=== PATIENT | male | born 1970 | race African-American/Black ===

== ENCOUNTER 2019-05-10 04:15 | Emergency (ER) | payer MEDICARE, MEDICAID ==
[~2019-05-10] VITALS: Ht 180.3 cm; Wt 78.5 kg
[2019-05-10] MEDS ORDERED: cloNIDine HCL 0.1 MG TAB PO ONE (05:00)
[2019-05-10 07:43] LABS: Basophils # (auto) 0 uL; Basophils % (auto) 0.4 % (0.0-2.0); Eosinophils # (auto) 0 uL; Eosinophils % (auto) 0.1 % (0.0-7.0); Hemoglobin 13.6 g/dL (13.5-17.5); Lymphocytes # (auto) 1.2 uL; Monocytes # (auto) 0.8 uL; Red Cell Distribution Width 16.1 % (11.8-14.3)
[2019-05-10 07:48] LABS: Hematocrit 43.4 % (41.0-53.0); Lymphocytes % (auto) 12.8 % (10.0-50.0); Mean Corpuscular Hemoglobin 22.5 pg (28.0-32.0); Mean Corpuscular Hgb Conc. 31.3 g/dL (32.0-36.0); Monocytes % (auto) 8.6 % (0.0-12.0); Neutrophils # (auto) 7.4 uL; Neutrophils % (auto) 78.1 % (37.0-80.0); Nucleated Red Blood Cells % 0.1 %; Platelet Count (auto) 220 10^3/uL (140-450); Red Blood Cells 6.03 10^6/uL (4.5-5.90); White Blood Cell 9.4 10^3/uL (4.4-10.8)
[2019-05-10 08:01] LABS: Alanine Aminotransferase 18 U/L (16-61); Albumin 3.5 g/dL (3.4-5.0); Amylase 139 U/L (25-115); Anion Gap 7 (5-15); Aspartate Aminotransferase 19 U/L (15-37); BUN/Creatinine Ratio 10.9; Blood Urea Nitrogen 14 mg/dL (7-18); Calcium 8.4 mg/dL (8.5-10.1); Carbon Dioxide 26 mmol/L (21-32); Chloride 102 mmol/L (98-107); GFR African American 77 mL/min; GFR Non-African American 63 mL/min; Glucose 96 mg/dL (74-106); Lipase 109 U/L (73-393); Potassium 3.4 mmol/L (3.5-5.1); Sodium 135 mmol/L (136-145)
[2019-05-10 08:08] LABS: Alkaline Phosphatase 45 U/L (45-117); Bilirubin, Total 0.4 mg/dL (0.2-1.0); Total Protein 8.6 g/dL (6.4-8.2)
[2019-05-10 08:16] LABS: INR 1.15 (0.9-1.15)
[2019-05-10 11:14] VITALS: BP 122/85
[2019-05-10] MEDS ORDERED: POTASSIUM EFFERVESENT TAB 25 MEQ PO ONE (11:15)
[2019-05-11] MEDS ORDERED: TAM04C PO (21:17)
[2019-05-11] MEDS ORDERED: PANC3600 OR (21:17)
[2019-05-11] MEDS ORDERED: METO10TA3 PO (21:17)
[2019-05-11] MEDS ORDERED: [UNRECOGNIZED DRUG - CODE] PO (21:17)
[2019-05-11] MEDS ORDERED: HYDR50TA15 PO (21:17)
[2019-05-11] MEDS ORDERED: [UNRECOGNIZED DRUG - CODE] XX (21:17)
[2019-05-11] MEDS ORDERED: HYDR2INJ PO (21:17)
[2019-05-11] MEDS ORDERED: DRON5CAP PO (21:17)
[2019-05-11] MEDS ORDERED: FELO5TAB PO (21:17)
[2019-05-11] MEDS ORDERED: [UNRECOGNIZED DRUG - CODE] BU (21:17)
[2019-05-13] MEDS ORDERED: PANT40T PO (11:57)
[2019-05-13] MEDS ORDERED: AML5T PO (11:57)
[2019-05-13] MEDS ORDERED: HCTZ25T GT (11:58)
== END 2019-05-10 12:34 | disposition home or self-care (01) ==
LOC: ER 04:19
DX: G89.4 Chronic pain syndrome (principal); I10 Essential (primary) hypertension; E87.6 Hypokalemia; D50.9 Iron deficiency anemia, unspecified; Z88.8 Allergy status to other drugs, medicaments and biological substances
CPT/HCPCS: 36415; 71046; 74176; 80053; 82150; 83690; 83735; 84484; 85025; 85610; 85730; 93005; J1642

== ENCOUNTER 2019-05-11 14:51 | Inpatient (IN) | payer MEDICARE, MEDICAID | END 2019-05-13 13:15 | disposition home or self-care (01) | LOC: ER 14:51 → TELE 14:52 → TELE-WESTW 20:35 | DX: K92.2 Gastrointestinal hemorrhage, unspecified (principal); N17.0 Acute kidney failure with tubular necrosis; B20 Human immunodeficiency virus [HIV] disease; K86.1 Other chronic pancreatitis; I10 Essential (primary) hypertension; D72.829 Elevated white blood cell count, unspecified ==

== ENCOUNTER 2019-05-28 01:52 | Inpatient (IN) | payer MEDICARE, MEDICAID ==
[~2019-05-28] VITALS: Ht 180.3 cm; Wt 76.4 kg
[~2019-05-28 01:52] MED LIST: AML5T PO; DRON5CAP PO; FELO5TAB PO; HCTZ25T GT; PANC3600 OR; PANT40T PO; TAM04C PO; [UNRECOGNIZED DRUG - CODE] BU; [UNRECOGNIZED DRUG - CODE] PO; [UNRECOGNIZED DRUG - CODE] XX
[2019-05-28] MEDS ORDERED: KETOROLAC TROMETH 30 MG/ML 1ML VIAL IV ONE (02:30)
[2019-05-28] MEDS ORDERED: fentaNYL CITRATE 100 MCG/2 ML VL IV ONE (02:30)
[2019-05-28 05:10] LABS: Basophils # (auto) 0.1 uL; Eosinophils # (auto) 0.5 uL; Lymphocytes # (auto) 1.7 uL; Monocytes # (auto) 0.6 uL; Neutrophils % (auto) 66.6 % (37.0-80.0); Nucleated Red Blood Cells % 0.1 %
[2019-05-28 05:13] LABS: INR 1.13 (0.9-1.15); Partial Thromboplastin Time 25.5 sec (23.64-32.05)
[2019-05-28 05:14] LABS: Basophils % (auto) 0.9 % (0.0-2.0); Eosinophils % (auto) 5.9 % (0.0-7.0); Hematocrit 38.9 % (41.0-53.0); Hemoglobin 12.1 g/dL (13.5-17.5); Mean Corpuscular Hemoglobin 22.5 pg (28.0-32.0); Mean Corpuscular Hgb Conc. 31.2 g/dL (32.0-36.0); Monocytes % (auto) 6.6 % (0.0-12.0); Neutrophils # (auto) 5.7 uL; Platelet Count (auto) 195 10^3/uL (140-450); Red Blood Cells 5.41 10^6/uL (4.5-5.90); Red Cell Distribution Width 16.2 % (11.8-14.3); White Blood Cell 8.5 10^3/uL (4.4-10.8)
[2019-05-28] MEDS ORDERED: ONDANSETRON HCL 4 MG/2 ML VIAL IV ONE ×2 (05:15→08:00)
[2019-05-28 05:26] LABS: Albumin 3.5 g/dL (3.4-5.0); Amylase 164 U/L (25-115); Anion Gap 7 (5-15); Blood Urea Nitrogen 9 mg/dL (7-18); Calcium 8.4 mg/dL (8.5-10.1); Carbon Dioxide 23 mmol/L (21-32); Chloride 109 mmol/L (98-107); Glucose 78 mg/dL (74-106); Lipase 397 U/L (73-393); Magnesium 1.7 mg/dL (1.6-2.6); Potassium 3.3 mmol/L (3.5-5.1); Sodium 139 mmol/L (136-145)
[2019-05-28 05:33] LABS: Alanine Aminotransferase 14 U/L (16-61); Alkaline Phosphatase 36 U/L (45-117); Aspartate Aminotransferase 17 U/L (15-37); BUN/Creatinine Ratio 8.6; Bilirubin, Total 0.3 mg/dL (0.2-1.0); GFR African American 96 mL/min; GFR Non-African American 79 mL/min; Total Protein 7.6 g/dL (6.4-8.2)
[2019-05-28] MEDS ORDERED: POTASSIUM CHL 20MEQ/100ML 100 ML IV ONE (07:45)
[2019-05-28] MEDS ORDERED: MORPHINE SULFATE 4 MG/ML SYR/VIAL IV ONE (08:00)
[2019-05-28] MEDS ORDERED: MORPHINE SULF INJ 2 MG/ML SYRINGE 1ML IV PRN (09:00)
[2019-05-28] MEDS ORDERED: NITROGLYCERIN 0.4 MG SL TAB SL PRN (09:00)
[2019-05-28] MEDS: HCTZ 25 MG TAB PO SCH (10:00)
[2019-05-28] MEDS: amLODIPine BESYLATE 5 MG TAB PO SCH (10:00)
[2019-05-28] MEDS ORDERED: LAMIVUDINE 300 MG PO SCH (10:00)
[2019-05-28] MEDS: MORPHINE SULF INJ 2 MG/ML SYRINGE 1ML IV PRN ×3 (11:29→19:56)
[2019-05-28] MEDS: SUCRALFATE 1 GM TAB PO SCH ×3 (11:30→21:59)
[2019-05-28] MEDS: ONDANSETRON HCL 4 MG/2 ML VIAL IV PRN ×3 (11:30→19:56)
--- NOTE | 2019-05-28 12:00 | NUR ---
MS admit from ER LUCRECIA CHAIDEZ admitted to med/surg unit, following verbal report from ED nurse. Patient oriented to Lu Swanson RN primary RN, unit, room, bed, and unit policies regarding patient care and visiting hours. Patient weighed by bedscale and encouraged to call if they need something. All questions and concerns addressed, patient verbalized understanding. Right upper chest port-a-cath accessed, patent, with brisk blood return, and flushes without resistance. Note:
--- NOTE | 2019-05-28 19:05 | NUR ---
OPENING NOTE- NOC SHIFT PATIENT IS ALERT AND ORIENTED X4, ANSWERS IN COMPLETE SENTENCES AND MAKES APPROPRIATE EYE CONTACT. PATIENT IS SITTING UP IN BED, BED IS LOCKED IN LOWEST POSITION, BED RAILS UP X2 AND HEAD OF BED IS UP >30 DEGREES FOR SAFETY PRECAUTIONS. DISCUSSED POC WITH PATIENT AND INSTRUCTED PATIENT TO CALL PRN; PATIENT VERBALIZED UNDERSTANDING. WILL CONTINUE TO MONITOR Q1H AND PRN.
[2019-05-28 20:05] VITALS: BP 136/95
[2019-05-28 21:57] VITALS: BP 136/95
[2019-05-28] MEDS: TAMSULOSIN HYDROCHLORIDE 0.4 MG CAP PO SCH (21:59)
[2019-05-29] MEDS: MORPHINE SULF INJ 2 MG/ML SYRINGE 1ML IV PRN ×4 (00:24→15:02)
[2019-05-29] MEDS: ONDANSETRON HCL 4 MG/2 ML VIAL IV PRN ×3 (00:25→19:48)
[2019-05-29 05:23] VITALS: BP 138/85
[2019-05-29] MEDS: SUCRALFATE 1 GM TAB PO SCH ×2 (06:11→10:21)
--- NOTE | 2019-05-29 07:05 | NUR ---
BLOOD SAMPLES SENT TO LAB [facility] ACCESSED FOR BLOOD WITHDRAW. PATIENT TOLERATED WELL. FLUSHED AND LOCKED [facility].
--- NOTE | 2019-05-29 07:20 | NUR ---
ENDORSED PATIENT CARE TO DAY SHIFT NURSE CLEO THOMASON. PATIENT IS ALERT AND ORIENTED, NO S/SX OF DISTRESS, SOB OR PAIN.
[2019-05-29 07:33] LABS: Albumin 3.3 g/dL (3.4-5.0); Calcium 8.1 mg/dL (8.5-10.1); Potassium 3.4 mmol/L (3.5-5.1)
[2019-05-29 07:39] LABS: Bilirubin, Total 0.5 mg/dL (0.2-1.0); Total Protein 7.1 g/dL (6.4-8.2)
[2019-05-29 08:17] VITALS: BP 136/87
[2019-05-29] MEDS: EPIVIR PO SCH (10:00)
[2019-05-29] MEDS: amLODIPine BESYLATE 5 MG TAB PO SCH (10:21)
[2019-05-29] MEDS: HCTZ 25 MG TAB PO SCH (10:21)
[2019-05-29] MEDS ORDERED: POTASSIUM CHL 20 Meq TABLET PO ONE (12:45)
[2019-05-29 13:00] VITALS: BP 137/84
[2019-05-29 13:51] LABS: Basophils # (auto) 0.1 uL; Basophils % (auto) 1.3 % (0.0-2.0); Eosinophils # (auto) 0.6 uL; Eosinophils % (auto) 11.1 % (0.0-7.0); Hematocrit 37.9 % (41.0-53.0); Hemoglobin 12.1 g/dL (13.5-17.5); Lymphocytes # (auto) 1.8 uL; Lymphocytes % (auto) 30.8 % (10.0-50.0); Mean Corpuscular Hemoglobin 22.8 pg (28.0-32.0); Mean Corpuscular Volume 71.3 fL (80.0-100.0); Monocytes # (auto) 0.5 uL; Monocytes % (auto) 8.3 % (0.0-12.0); Neutrophils # (auto) 2.8 uL; Neutrophils % (auto) 48.5 % (37.0-80.0); Nucleated Red Blood Cells % 0.1 %; Platelet Count (auto) 203 10^3/uL (140-450); Red Blood Cells 5.32 10^6/uL (4.5-5.90); Red Cell Distribution Width 16.1 % (11.8-14.3); White Blood Cell 5.7 10^3/uL (4.4-10.8)
[2019-05-29] MEDS: LACTATED RINGER'S 1,000 ML IV SCH ×2 (13:57→22:45)
[2019-05-29] MEDS ORDERED: GOLYTELY 4L KIT PO ONE (14:30)
--- NOTE | 2019-05-29 15:00 | NUR ---
DR. FREEMAN PLAN FOR COLONOSCOPY 05/30/19 PHARMACY CALLED FOR LAXATIVE, MADE AWARE, PT AWARE OF PLAN.
--- NOTE | 2019-05-29 16:50 | NUR ---
LAXATIVE THERAPY (BOWEL PREP) INITIATED, PLAN AND INSTRUCTIONS EXPLAINED. PT VERBALIZED UNDERSTANDING.
[2019-05-29 17:00] VITALS: BP 128/95
--- NOTE | 2019-05-29 19:30 | NUR ---
RECEIVED PATIENT, AWAKE, ALERT. ORIENTED X4. NO S/S OF RESPIRATORY DISTRESS. ORIENTED ON PLAN OF CARE. BED IS LOCKED AND IN LOWEST POSITION, SIDE RAILS UP X2, CALL LIGHT WITHIN REACH. WILL CONTINUE TO MONITOR
[2019-05-29] MEDS: HYDROmorphone HCL 2 MG TAB PO PRN (19:45)
[2019-05-29] MEDS: TAMSULOSIN HYDROCHLORIDE 0.4 MG CAP PO SCH (22:12)
[2019-05-29] MEDS: PANTOPRAZOLE 40 MG TAB PO SCH (22:13)
[2019-05-29 23:01] VITALS: BP 133/91
[2019-05-30] MEDS: HYDROmorphone HCL 2 MG TAB PO PRN ×5 (00:29→21:48)
[2019-05-30] MEDS: ONDANSETRON HCL 4 MG/2 ML VIAL IV PRN ×3 (00:30→18:45)
[2019-05-30] MEDS: LACTATED RINGER'S 1,000 ML IV SCH ×2 (04:32→19:04)
[2019-05-30 05:29] VITALS: BP_SYST 101; BP_SYST 121; BP_DIAS 41; BP_DIAS 84
[2019-05-30 05:29] LABS: Cannabinoid Screen, Urine NEGATIVE (NEGATIVE); Urine Bacteria FEW /hpf (None Seen); Urine Blood Negative /uL (Negative); Urine Mucus FEW (None Seen); Urine Specific Gravity 1.014 (1.001-1.035); Urine WBC 1 /hpf (0 - 3)
[2019-05-30 05:33] LABS: Alcohol, Urine < 3.0 mg/dL (0-5); Amphetamine Screen, Urine NEGATIVE (NEGATIVE); Barbiturate Scree,Urine POSITIVE (NEGATIVE); Benzodiazephine Screen, Urine NEGATIVE (NEGATIVE); Cocaine Screen, Urine NEGATIVE (NEGATIVE); Opiate Scree,Urine POSITIVE (NEGATIVE); Phencyclidine Screen, Urine NEGATIVE (NEGATIVE)
[2019-05-30] MEDS ORDERED: GOLYTELY 4L KIT PO ONE (06:00)
--- NOTE | 2019-05-30 07:43 | NUR ---
CARE ENDORSED TO AM SHIFT RN
[2019-05-30 08:26] VITALS: BP 152/99
[2019-05-30] MEDS ORDERED: MIDAZOLAM HCL 5 MG/ML-1ML VIAL ONE (08:50)
[2019-05-30] MEDS ORDERED: SODIUM CHLORIDE LOCK 0 ML ONE (08:50)
[2019-05-30] MEDS ORDERED: diphenhdrAMINE HCL 50 MG/1 ML VL ONE (08:51)
[2019-05-30] MEDS ORDERED: fentaNYL CITRATE 100 MCG/2 ML VL ONE ×2 (08:51→13:07)
[2019-05-30] MEDS: amLODIPine BESYLATE 5 MG TAB PO SCH (09:15)
[2019-05-30] MEDS: EPIVIR PO SCH (10:00)
[2019-05-30] MEDS: PANTOPRAZOLE 40 MG TAB PO SCH ×2 (10:00→21:41)
--- NOTE | 2019-05-30 12:41 | NUR ---
Estimated needs based on CBW 74.4 kg-Increased needs for viral illness 1022-2641 kcal (30-35 kcal/kg) 89-104 g protein (1.2-1.4 g/kg) Addendum: 05/30/19 at [address] Amended: Links added.
[2019-05-30 13:03] VITALS: BP 142/92
[2019-05-30] MEDS ORDERED: PROPOFOL 10 MG/ML 20 ML IV ONE (13:08)
[2019-05-30] MEDS ORDERED: SODIUM CHLORIDE LOCK 10 ML ONE (13:08)
[2019-05-30] MEDS ORDERED: MIDAZOLAM HCL 1MG/1ML-2 ML VIAL ONE (13:08)
[2019-05-30] MEDS ORDERED: METOCLOPRAMIDE HCL 5MG/ml INJ 2ml VIAL IV PRN (13:15)
[2019-05-30] MEDS ORDERED: HYDROmorphone HCL 2 MG/ML VL IV PRN (13:15)
[2019-05-30] MEDS ORDERED: fentaNYL CITRATE 100 MCG/2 ML VL IV PRN (13:15)
[2019-05-30 16:28] VITALS: BP 131/90
--- NOTE | 2019-05-30 19:22 | NUR ---
OPENING SHIFT NOTE Assumed care of patient who is alert and oriented. Currently on room air with no s/s of SOB/distress or pain. Bed is in low locked position with side rails up x2. Call light is within reach. Patient encouraged to call for assistance when needed. Will continue to monitor for changes PRN.
[2019-05-30] MEDS: TAMSULOSIN HYDROCHLORIDE 0.4 MG CAP PO SCH (21:41)
[2019-05-30 22:00] VITALS: BP 123/75
[2019-05-30] MEDS ORDERED: HYDROCORTISONE 100 MG/60 ML RECT ENEMA PR SCH (22:00)
--- NOTE | 2019-05-30 22:00 | NUR ---
ENEMA ADMINISTERED PER ORDER. PATIENT TOLERATED WELL.
[2019-05-31] MEDS: HYDROmorphone HCL 2 MG TAB PO PRN ×2 (03:14→07:46)
[2019-05-31 05:55] VITALS: BP 146/98
[2019-05-31 09:25] VITALS: BP 129/87
[2019-05-31] MEDS: PANTOPRAZOLE 40 MG TAB PO SCH (09:54)
[2019-05-31] MEDS: amLODIPine BESYLATE 5 MG TAB PO SCH (09:54)
[2019-05-31] MEDS: LACTATED RINGER'S 1,000 ML IV SCH ×2 (09:56→14:45)
[2019-05-31] MEDS: EPIVIR PO SCH (09:56)
--- NOTE | 2019-05-31 11:16 | NUR ---
Hospitalist at bedside MD Rousseau at bedside. New orders received for dc home today. Patient states he does not want to leave because "my friend cannot pick me up today anymore until tomorrow". Patient informed that transport can be provided via taxi or bus. Patient states that he does not want to see Hospitalist and he does not "think I should go home yet". Patient states he will call his insurance and requesting to speak to "pain management doctor and rn case management". MD srivastava informed him she put in order for dc and for him to f/u with pcp and GI as outpatient. Will dc as ordered.
[2019-05-31 12:33] VITALS: BP 146/104
--- NOTE | 2019-05-31 13:19 | NUR ---
F/U regarding dc patient states he "is contacting my insurance and Medicare says they will call you guys". workers' compensation claims examiner informed. Patient states he will not leave and be d/c as ordered at this time. warning coordination meteorologist aware. Per social science analyst Tessa Hoff will talk to patient once she's done with meeting.
--- NOTE | 2019-05-31 15:41 | NUR ---
assessment Patient is a 48 year old male who is alert and oriented. Patients cognitive abilities are intact. Prior to admission patient lived home with family and functioned with assistance. Per patient he will return home to his prior living arrangements post discharge and family will transport him home. Patient informed me his PCP is Dr Eubanks in [place]. Per patient he has a [facility] caregiver. Patient has no need for DME. Patient informed me he has filed a [employer] appeal. Patient informed me he wants to speak with the GI MD, Dr De Santiago regarding his colonoscopy and what the plan of care will be. Patient wants to know what Dr De Santiago's thoughts are regarding his abdominal pain and what he needs to do going forward. I informed charger operator helperPADDY Monroy of patients request. Per Eliana she will speak to Cassie THOMASON about patients concerns and try to contact Dr De Santiago. I will follow up with patient in the morning. I informed patient he has a right to speak to a child protective services social worker regarding all care. I informed patient he has a right to participate in any and all discharge planning. Patient does not have a POA and advanced directive. I have offered patient information on POA and advanced directives. I informed the patient the advantages and benefits of having an Advanced Directive. Patient verbalized understanding and agreed to discharge plan. Addendum: 05/31/19 at 1553 by Diana MORALES Amended: Links added.
--- NOTE | 2019-05-31 16:05 | NUR ---
Regarding patient appealing dc patient states he already has a case open to appeal for dc and that he wishes to speak to GI doctor at this time. I spoke to Dr Hurst and he states he has already spoken to patient regarding POC including colonoscopy results and awaiting biopsy results at this time. I attempted to inform patient that Dr Hurst cannot come talk to him at bedside at this time but he yelled that he "do not want to hear it from you (primary rn), I want to see the doctor right now and have him tell me himself again!". I spoke to Diana school social worker and Tessa and informed her. glass furnace tender Eliana aware. I will call Dr. Hurst to inform him.
--- NOTE | 2019-05-31 16:40 | NUR ---
Regarding discharge MD Hurst at bedside to speak to patient, Tessa public health social worker at bedside following up with patient since pt states he "open a case for an appeal". MD Hurst spoke to patient extensively regarding POC and follow up instructions including foods to avoid at home and new prescriptions given to patient. Patient's questions were all answered in detail by MD Hurst. Patient verbalized understanding regarding all follow up instructions including new meds, use, s/s, contraindications and s/e to report. Patient states he "got all questions answered" patient agrees to d/c home as ordered. Patient told public health social worker Tessa that he will be going home and he will call to cancel appeal. Will dc patient as ordered
[2019-05-31] MEDS ORDERED: HYOSCYAMINE SULF 0.125 MG ODT TAB PO PRN (16:45)
[2019-05-31 16:53] VITALS: BP 139/98
--- NOTE | 2019-05-31 18:13 | NUR ---
Discharge instructions given as ordered, paralegal secretary Antoinette at bedside as well. Encourage to follow up with PMD as instructed. Patient states he already has an appointment with his primary doctor. All questions and concerns addressed. Patient verbalized understanding. Medication reconciliation form completed and copy given to patient. Prescriptions given to patient and signed copies placed in chart. Portacath removed with catheter intact after heparin flush as ordered, patient tolerated well. Patient refused wheelchair he states he will walk out by himself to vehicle with all personal belongings. No distress noted at time of departure, sob or pain.
== END 2019-05-31 18:13 | disposition home or self-care (01) | DRG 394 ==
LOC: ER 01:54 → OVERFLOW 01:55 → WEST WING 10:45
PROVIDERS: ADMIT Nurse Practitioner Acute Care; ATTEND Internal Medicine Nephrology
PROC: 0DBN8ZX Excision of Sigmoid Colon, Via Natural or Artificial Opening Endoscopic, Diagnostic (ICD-10-PCS; 2019-05-30)
PROC: 0DBP8ZX Excision of Rectum, Via Natural or Artificial Opening Endoscopic, Diagnostic (ICD-10-PCS; principal; 2019-05-30 13:20)
DX: K64.8 Other hemorrhoids (principal); K86.1 Other chronic pancreatitis; K62.6 Ulcer of anus and rectum; E87.6 Hypokalemia; N18.9 Chronic kidney disease, unspecified; F41.9 Anxiety disorder, unspecified; M54.9 Dorsalgia, unspecified; M19.90 Unspecified osteoarthritis, unspecified site; I12.9 Hypertensive chronic kidney disease with stage 1 through stage 4 chronic kidney disease, or unspecified chronic kidney disease; D50.9 Iron deficiency anemia, unspecified; G89.4 Chronic pain syndrome; Z88.6 Allergy status to analgesic agent; Z90.49 Acquired absence of other specified parts of digestive tract; Z79.899 Other long term (current) drug therapy; Z79.891 Long term (current) use of opiate analgesic
CPT/HCPCS: 36415; 45380; 71045; 74176; 80053; 80307; 80320; 81001; 82150; 82270; 83690; 83735; 84478; 84484; 85025; 85610; 85730; 87081; 93005; 96365; 96375; G0378; J1642; J1885; J2250; J2405; J2704; J3480

== ENCOUNTER 2019-06-24 16:26 | Inpatient (IN) | payer MEDICARE, MEDICAID ==
[~2019-06-24] VITALS: Ht 180.3 cm; Wt 71.8 kg
[~2019-06-24 16:26] MED LIST changes: -HCTZ25T GT
[2019-06-24] MEDS ORDERED: SODIUM CHLORIDE 0.9% 1,000 ML IVB ONE (16:48)
[2019-06-24 17:38] LABS: Albumin 3.5 g/dL (3.4-5.0); Amylase 200 U/L (25-115); Anion Gap 8 (5-15); BUN/Creatinine Ratio 16.9; Blood Urea Nitrogen 20 mg/dL (7-18); Calcium 9.2 mg/dL (8.5-10.1); Carbon Dioxide 23 mmol/L (21-32); Chloride 112 mmol/L (98-107); GFR African American 84 mL/min; GFR Non-African American 69 mL/min; Glucose 85 mg/dL (74-106); Lipase 301 U/L (73-393); Magnesium 1.9 mg/dL (1.6-2.6); Potassium 4.3 mmol/L (3.5-5.1); Sodium 143 mmol/L (136-145)
[2019-06-24 17:49] LABS: Alanine Aminotransferase 104 U/L (16-61); Alkaline Phosphatase 63 U/L (45-117); Aspartate Aminotransferase 68 U/L (15-37); Bilirubin, Total 0.1 mg/dL (0.2-1.0); Total Protein 8.2 g/dL (6.4-8.2)
[2019-06-24] MEDS: PROMETHAZINE HCL 25 MG/ML 1ML IV PRN (18:30)
[2019-06-24 18:58] LABS: Basophils # (auto) 0.1 uL; Eosinophils # (auto) 0.4 uL; Mean Corpuscular Hemoglobin 22.4 pg (28.0-32.0); Mean Corpuscular Hgb Conc. 31.3 g/dL (32.0-36.0); Mean Corpuscular Volume 71.6 fL (80.0-100.0); Monocytes # (auto) 0.6 uL
[2019-06-24] MEDS ORDERED: MORPHINE SULF INJ 2 MG/ML SYRINGE 1ML IV ONE ×2 (19:00→21:00)
[2019-06-24 19:01] LABS: Basophils % (auto) 1.1 % (0.0-2.0); Eosinophils % (auto) 6.5 % (0.0-7.0); Hematocrit 38.4 % (41.0-53.0); Lymphocytes % (auto) 29.4 % (10.0-50.0); Monocytes % (auto) 9.3 % (0.0-12.0); Neutrophils # (auto) 3.7 uL; Neutrophils % (auto) 53.7 % (37.0-80.0); Nucleated Red Blood Cells % 0.2 %; Platelet Count (auto) 219 10^3/uL (140-450); Red Blood Cells 5.37 10^6/uL (4.5-5.90); Red Cell Distribution Width 16.7 % (11.8-14.3); White Blood Cell 6.8 10^3/uL (4.4-10.8)
[2019-06-24 19:47] LABS: Urine Bacteria NONE SEEN /hpf (None Seen); Urine Blood Negative /uL (Negative); Urine Specific Gravity 1.021 (1.001-1.035); Urine WBC <1 /hpf (0 - 3)
[2019-06-24] MEDS ORDERED: MORPHINE SULFATE 4 MG/ML SYR/VIAL IV PRN (21:30)
[2019-06-24] MEDS ORDERED: MORPHINE SULF INJ 2 MG/ML SYRINGE 1ML IV PRN ×2 (21:30)
[2019-06-24] MEDS ORDERED: LORazepam 0.5 MG TAB PO PRN (21:30)
[2019-06-24] MEDS ORDERED: ONDANSETRON HCL 4 MG/2 ML VIAL IV PRN (21:30)
[2019-06-24] MEDS ORDERED: hydrALAZINE HCL 20 MG/ML VL IV PRN (21:30)
[2019-06-24] MEDS ORDERED: KETOROLAC TROMETH 30 MG/ML 1ML VIAL IV PRN (21:30)
[2019-06-24] MEDS ORDERED: ZOLPIDEM TARTRATE 5 MG TAB PO PRN (21:30)
[2019-06-24] MEDS ORDERED: NITROGLYCERIN 0.4 MG SL TAB SL PRN (21:30)
[2019-06-24] MEDS ORDERED: ALUM & MAG HYDROX-SIMETH LIQ(MAALOX) 30 ML PO ONE (22:00)
[2019-06-24] MEDS: SODIUM CHLORIDE 0.9% 1,000 ML IV SCH (22:54)
[2019-06-25] MEDS ORDERED: INFLUENZA QUAD 2019-2020 0.5ml SYRG IM ONE
[2019-06-25] MEDS: PROMETHAZINE HCL 25 MG/ML 1ML IV PRN ×2 (00:06→13:04)
[2019-06-25] MEDS: MORPHINE SULF INJ 2 MG/ML SYRINGE 1ML IV PRN ×3 (01:58→15:01)
[2019-06-25 05:00] VITALS: BP 137/95
[2019-06-25 06:43] LABS: Basophils # (auto) 0.1 uL; Eosinophils # (auto) 0.4 uL; Hemoglobin 11.8 g/dL (13.5-17.5); Monocytes # (auto) 0.5 uL; Neutrophils # (auto) 2.5 uL
[2019-06-25 06:46] LABS: Basophils % (auto) 1.5 % (0.0-2.0); Eosinophils % (auto) 8.6 % (0.0-7.0); Hematocrit 37.4 % (41.0-53.0); Lymphocytes # (auto) 1.7 uL; Lymphocytes % (auto) 31.9 % (10.0-50.0); Mean Corpuscular Hemoglobin 22.6 pg (28.0-32.0); Mean Corpuscular Hgb Conc. 31.7 g/dL (32.0-36.0); Mean Corpuscular Volume 71.3 fL (80.0-100.0); Monocytes % (auto) 10.1 % (0.0-12.0); Neutrophils % (auto) 47.9 % (37.0-80.0); Nucleated Red Blood Cells % 0.2 %; Platelet Count (auto) 195 10^3/uL (140-450); Red Blood Cells 5.24 10^6/uL (4.5-5.90); Red Cell Distribution Width 16.9 % (11.8-14.3); White Blood Cell 5.2 10^3/uL (4.4-10.8)
[2019-06-25 06:57] LABS: INR 1.08 (0.9-1.15); Partial Thromboplastin Time 27.3 sec (23.64-32.05)
[2019-06-25 07:00] LABS: Chloride 114 mmol/L (98-107); Sodium 143 mmol/L (136-145)
[2019-06-25 07:15] LABS: Alanine Aminotransferase 101 U/L (16-61); Albumin 3.2 g/dL (3.4-5.0); Alkaline Phosphatase 55 U/L (45-117); Anion Gap 6 (5-15); Aspartate Aminotransferase 65 U/L (15-37); BUN/Creatinine Ratio 14.3; Bilirubin, Total 0.5 mg/dL (0.2-1.0); Blood Urea Nitrogen 15 mg/dL (7-18); Calcium 8.4 mg/dL (8.5-10.1); Carbon Dioxide 23 mmol/L (21-32); Cholesterol 111 mg/dL (< 200); Creatine Kinase IFCC 95 U/L (39-308); GFR African American 96 mL/min; GFR Non-African American 79 mL/min; Glucose 86 mg/dL (74-106); HDL Cholesterol 55 mg/dL (40-59); LDL Cholesterol 53 mg/dL (< 100); Magnesium 1.8 mg/dL (1.6-2.6); Phosphorus 3.2 mg/dL (2.5-4.90); Total Protein 7.6 g/dL (6.4-8.2); Triglycerides 53 mg/dL (< 150)
[2019-06-25] MEDS: ENOXAPARIN SOD 40 MG/0.4 ML SYRINGE SC SCH (08:21)
[2019-06-25] MEDS: DOCUSATE SOD 100 MG CAP PO SCH (08:22)
[2019-06-25 08:30] VITALS: BP 136/97
[2019-06-25] MEDS: SODIUM CHLORIDE 0.9% 1,000 ML IV SCH (11:20)
[2019-06-25 12:30] VITALS: BP 131/98
[2019-06-25 17:00] VITALS: BP 131/96
[2019-06-25] MEDS: HYDROmorphone HCL 2 MG/ML VL IV PRN (20:47)
[2019-06-25 22:00] VITALS: BP 139/102
[2019-06-26] MEDS: SODIUM CHLORIDE 0.9% 1,000 ML IV SCH ×2 (00:36→14:00)
[2019-06-26 05:00] VITALS: BP 143/95
[2019-06-26] MEDS: HYDROmorphone HCL 2 MG/ML VL IV PRN ×2 (08:01→13:59)
[2019-06-26] MEDS: DOCUSATE SOD 100 MG CAP PO SCH (08:25)
[2019-06-26] MEDS: ENOXAPARIN SOD 40 MG/0.4 ML SYRINGE SC SCH (08:25)
[2019-06-26 09:00] VITALS: BP 155/102
[2019-06-26 12:00] VITALS: BP 152/97
[2019-06-26 12:18] LABS: Hepatitis B Surface Antibody Negative
[2019-06-26 12:57] LABS: Hepatitis A Total Antibody Positive
[2019-06-26 13:17] VITALS: BP 132/97
[2019-06-26 14:22] LABS: Hepatitis C Antibody Negative (Negative)
[2019-06-26 14:23] LABS: Hepatitis B Surface Antigen Positive (Negative)
[2019-06-26 14:24] LABS: Hepatitis C Antibody Negative (Negative)
[2019-06-26 14:25] LABS: Hepatitis B Core Total AB Positive; Hepatitis B Surface Antigen Positive (Negative)
== END 2019-06-26 16:10 | disposition home or self-care (01) | DRG 439 ==
LOC: ER 16:26 → EDBD 16:26 → OVERFLOW 16:27 → CENTRAL 23:20
PROVIDERS: ADMIT Hospitalist; ATTEND Hospitalist
DX: K85.90 Acute pancreatitis without necrosis or infection, unspecified (principal); B20 Human immunodeficiency virus [HIV] disease; K63.3 Ulcer of intestine; K86.1 Other chronic pancreatitis; N29 Other disorders of kidney and ureter in diseases classified elsewhere; I10 Essential (primary) hypertension; D64.9 Anemia, unspecified; F32.9 Major depressive disorder, single episode, unspecified; E11.21 Type 2 diabetes mellitus with diabetic nephropathy; Z23 Encounter for immunization; Z88.1 Allergy status to other antibiotic agents
CPT/HCPCS: 36415; 71045; 74176; 80053; 80061; 81001; 82150; 82550; 83036; 83690; 83735; 84100; 84484; 85025; 85610; 85730; 86360; 86701; 86703; 86704; 86706; 86708; 86803; 87081; 87340; 94761; 96361; 96374; 96375; G0378